=== PATIENT | female | born 1975 | race Caucasian/White ===

== ENCOUNTER 2019-08-05 15:13 | Inpatient (IN) | payer BC ==
[~2019-08-05] VITALS: Ht 154.9 cm; Wt 117.5 kg
[~2019-08-05 15:13] MED LIST: CALCIUM + D SO1 EACH; FISH OIL 1,0001 EAC5 PO; LEXAPRO20 MG PO; MULTI VITAMIN1 EACH PO; SIMVASTATIN40 MG PO; VITAMIN E400 UNI7 PO
[2019-08-05] MEDS ORDERED: ROPINIROLE HCL6 MG PO (15:30)
[2019-08-05 16:17] LABS: ABSOLUTE BASOPHILS 0.1 thou/uL (0.0-0.2); ABSOLUTE LYMPHOCYTES 0.7 thou/uL (0.8-5.3); ABSOLUTE MONOCYTES 0.5 thou/uL (0.0-1.2); ABSOLUTE NEUTROPHILS 4.4 thou/uL (1.6-8.1); BASOPHILS 1.1 %; BE -1.6 mmol/L (-2 to +3); EOSINOPHILS 0.8 %; HEMATOCRIT 40.4 % (37.0-47.0); HEMOGLOBIN 14.3 gm/dL (12.0-15.0); LYMPHOCYTES 11.8 %; MCH 29.9 pg (26.0-34.0); MCHC 35.4 g/dL (28.0-37.0); MCV 84.6 fL (80.0-100.0); MONOCYTES 8.9 %; MPV 8.7 fl. (7.2-11.1); NUCLEATED RBCS 0 /100WBC; PCO2 VENOUS 35.9 mmHg (41.0-51.0); PLATELET COUNT* 186 thou/uL (150-400); PO2 VENOUS 106.3 mmHg (35.0-45.0); POLYS 77.4 %; RBC 4.78 mil/uL (4.20-5.00); WBC 5.7 thou/uL (4.0-11.0)
[2019-08-05 16:31] LABS: CALCIUM 9.2 mg/dL (8.5-10.1); POTASSIUM 3.7 mmol/L (3.5-5.1)
[2019-08-05 16:38] LABS: ALBUMIN 3.2 g/dL (3.4-5.0); TOTAL PROTEIN 6.9 g/dL (6.4-8.2)
[2019-08-05 17:22] LABS: URINE BILIRUBIN NEGATIVE (Negative); URINE BLOOD TRACE (Negative); URINE CLARITY CLEAR; URINE COLOR YELLOW; URINE GLUCOSE-RANDOM 3+ (Negative); URINE KETONES 1+ (Negative); URINE LEUKOCYTES-REFLEX NEGATIVE (Negative); URINE NITRITE-REFLEX NEGATIVE (Negative); URINE PROTEIN NEGATIVE (Negative); URINE UROBILINOGEN 0.2 E.U./dl (0.2-1.0)
[2019-08-05 19:29] VITALS: BP 139/82
[2019-08-05 20:00] VITALS: BP 133/70
[2019-08-06] VITALS: BP 135/62
[2019-08-06 04:00] VITALS: BP 118/60
[2019-08-06 08:30] VITALS: BP 132/68
--- NOTE | 2019-08-06 10:26 | EKG ---
[place] [address] ELECTROCARDIOGRAM REPORT Name: MILAD PUGA Rodney Room: [address] ADM IN [facility].#: [id number] Admission: 08/05/19 Attend Phys: Tong Justice, Discharge: Date of : 71 Date of Service: 08/05/19 1534 Report #: [id number] THIS REPORT FOR: //name// [facility] ED Test Date: 2019-08-05 Test Time: 15:34:38 Pat Name: MILAD PUGA Department: Room: [facility] Gender: F Gasket Former: HENRY : 1975 Requested By: Choco Wise Order Number: [id number] MD: Jerod Yi Measurements Intervals [place] Rate: 102 P: 60 CO: 146 QRS: 6 QRSD: 100 T: 18 QT: 357 QTc: 466 Interpretive Statements Sinus tachycardia ST elev, probable normal early repol pattern No previous ECG available for comparison Electronically Signed On 08-06-2019 10:25:54 CDT by Jerod Yi [email or web address] <ELECTRONICALLY SIGNED> By: Jerod Yi MD, FACC 08/06/19 1025 1534 1534 Jerod Yi MD, [facility] /EPI
[2019-08-06 13:22] VITALS: BP 129/66
[2019-08-06 17:39] VITALS: BP 147/72
[2019-08-06 20:00] VITALS: BP 129/56
[2019-08-07] VITALS: BP 128/64
[2019-08-07 02:06] LABS: GLYCOHEMOGLOBIN (HGB A1C) 11.8 % (4.8-5.6)
[2019-08-07 04:00] VITALS: BP 106/42
[2019-08-07] MEDS ORDERED: METFORMIN HCL500 MG PO (10:30)
[2019-08-07] MEDS ORDERED: HUMALOG100 UNIT/1 SUBQ (10:30)
[2019-08-07] MEDS ORDERED: GLYBURIDE 5 MG T5 M1 PO (10:30)
[2019-08-07 12:00] VITALS: BP 136/68
== END 2019-08-07 14:00 | disposition home or self-care (01) | DRG 637 ==
LOC: M.ERS 15:13 → M.2W 16:47 → M.TBA-ER 16:47 → M.2W 20:22
PROVIDERS: Family Medicine; Physician Assistant; ADMIT Internal Medicine; ATTEND Internal Medicine
DX: E11.65 Type 2 diabetes mellitus with hyperglycemia (principal); E11.00 Type 2 diabetes mellitus with hyperosmolarity without nonketotic hyperglycemic-hyperosmolar coma (NKHHC); J18.9 Pneumonia, unspecified organism; E72.51 Non-ketotic hyperglycinemia; E87.1 Hypo-osmolality and hyponatremia; F32.9 Major depressive disorder, single episode, unspecified; E78.00 Pure hypercholesterolemia, unspecified; E66.01 Morbid (severe) obesity due to excess calories; E86.0 Dehydration; Z20.828 Contact with and (suspected) exposure to other viral communicable diseases; Z79.899 Other long term (current) drug therapy; Z68.41 Body mass index [BMI] 40.0-44.9, adult